=== PATIENT | male | born 1985 | race Caucasian/White ===

== ENCOUNTER 2017-09-18 09:02 | Inpatient (IN) | payer OTHER ==
[2017-09-18] VITALS (9 sets, daily range): BP systolic 109–143; BP diastolic 60–82; PULSE 74–99; RESP 16–18; TEMP 96.2–100.3; O2SAT 94–100
[2017-09-18] MEDS ORDERED: DIPHTH/TETANUS/ACEL PERTUSSIS (BOOSTER) 0.5 ML VIAL/PFS IM ONE ×2 (09:06→10:00)
[2017-09-18] MEDS ORDERED: ceFAZolin 2 GM PREMIX 50 ML ONE (09:06)
[2017-09-18] MEDS ORDERED: IOHEXOL 350 MG/ML 10 ML VIAL (for RAD DIAG) IVCONTRAST ONE (09:21)
[2017-09-18 09:24] LABS: AUTOMATED NEUTROPHIL # 4.9 TH/MM3 (1.8-7.7); BASOPHIL # 0.1 TH/MM3 (0-0.2); BASOPHIL % 0.7 % (0.0-2.0); EOSINOPHIL # 0.1 TH/MM3 (0-0.4); EOSINOPHIL % 1.5 % (0.0-4.0); HEMATOCRIT 45.9 % (39.0-51.0); LYMPH % 26.3 % (9.0-44.0); LYMPHOCYTE # 2.2 TH/MM3 (1.0-4.8); MEAN CELL VOLUME 94.8 FL (80.0-100.0); MEAN CORPUSCULAR HEMOGLOBIN 33.1 PG (27.0-34.0); MEAN CORPUSCULAR HGB CONC 34.9 % (32.0-36.0); MEAN PLATELET VOLUME 8.2 FL (7.0-11.0); NEUT % 59.5 % (16.0-70.0); PLATELET COUNT 272 TH/MM3 (150-450); RED BLOOD COUNT 4.84 MIL/MM3 (4.50-5.90); RED CELL DISTRIBUTION WIDTH 13.3 % (11.6-17.2); WHITE BLOOD COUNT 8.2 TH/MM3 (4.0-11.0)
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
[2017-09-18] MEDS ORDERED: MORPHINE SULFATE 8 MG/ML INJ ONE (09:31)
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
[2017-09-18 09:39] LABS: INTERNATIONAL NORMALIZED RATIO 1.1 RATIO
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
[2017-09-18] MEDS ORDERED: SODIUM CHLOR 0.9% 1000 ML INJ 1,000 ML IV ONE (10:00)
[2017-09-18] MEDS ORDERED: ceFAZolin 2 GM PREMIX 50 ML IV ONE (10:00)
[2017-09-18] MEDS ORDERED: ONDANSETRON HCL 4 MG/2 ML VIAL IV PUSH PRN (12:15)
[2017-09-18] MEDS ORDERED: SODIUM CHLORIDE 0.9% FLUSH 10 ML FLUSH IV FLUSH PRN (12:15)
[2017-09-18] MEDS ORDERED: MORPHINE SULFATE 4 MG/ML INJ IV PUSH PRN (12:15)
[2017-09-18] MEDS ORDERED: ENALAPRILAT 1.25 MG/ML VIAL IV PUSH PRN (12:15)
[2017-09-18] MEDS ORDERED: MORPHINE SULFATE 8 MG/ML INJ IV PUSH PRN (12:15)
[2017-09-18] MEDS ORDERED: PANTOPRAZOLE SODIUM 40 MG VIAL IVP SCH (13:00)
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
[2017-09-18] MEDS: ceFAZolin 2 GM PREMIX 50 ML IV SCH (22:02)
[2017-09-19 04:15] VITALS: BP 129/90; PULSE 93; RESP 16; TEMP 97.4; O2SAT 97
[2017-09-19] MEDS: ceFAZolin 2 GM PREMIX 50 ML IV SCH ×2 (05:31→12:17)
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
[2017-09-19] MEDS ORDERED: oxyCODONE/ACETAMINOPHEN 5 MG/325 MG TAB PO PRN (06:15)
[2017-09-19 08:00] VITALS: BP 129/78; PULSE 82; RESP 18; TEMP 97.2; O2SAT 99
[2017-09-19] MEDS: oxyCODONE/ACETAMINOPHEN 10 MG/325 MG TAB PO PRN ×3 (08:08→15:52)
[2017-09-19 08:18] LABS: AUTOMATED NEUTROPHIL # 6.1 TH/MM3 (1.8-7.7); BASOPHIL % 0.2 % (0.0-2.0); EOSINOPHIL # 0.1 TH/MM3 (0-0.4); EOSINOPHIL % 1.1 % (0.0-4.0); HEMOGLOBIN 13.4 GM/DL (13.0-17.0); LYMPH % 18.5 % (9.0-44.0); LYMPHOCYTE # 1.7 TH/MM3 (1.0-4.8); MEAN CELL VOLUME 94.2 FL (80.0-100.0); MEAN CORPUSCULAR HEMOGLOBIN 32.5 PG (27.0-34.0); MEAN CORPUSCULAR HGB CONC 34.4 % (32.0-36.0); MEAN PLATELET VOLUME 8.4 FL (7.0-11.0); MONO % 15.3 % (0.0-8.0); MONOCYTE # 1.4 TH/MM3 (0-0.9); NEUT % 64.9 % (16.0-70.0); PLATELET COUNT 200 TH/MM3 (150-450); RED BLOOD COUNT 4.14 MIL/MM3 (4.50-5.90); RED CELL DISTRIBUTION WIDTH 13.4 % (11.6-17.2); WHITE BLOOD COUNT 9.4 TH/MM3 (4.0-11.0)
[2017-09-19 08:40] LABS: ALBUMIN 3.2 GM/DL (3.4-5.0); ALT (GPT) 126 U/L (12-78); AST (GOT) 114 U/L (15-37); BICARBONATE 26.1 MEQ/L (21.0-32.0); BLOOD UREA NITROGEN 9 MG/DL (7-18); CALCIUM 8.2 MG/DL (8.5-10.1); CHLORIDE 106 MEQ/L (98-107); CREATININE 0.88 MG/DL (0.60-1.30); GLOMERULAR FILTRATION RATE 75 ML/MIN (>89); GLUCOSE,RANDOM 97 MG/DL (74-106); SODIUM (NA) 140 MEQ/L (136-145)
[2017-09-19 08:42] LABS: ALKALINE PHOSPHATASE 89 U/L (45-117); TOTAL BILIRUBIN ADULT 0.4 MG/DL (0.2-1.0); TOTAL PROTEIN 6.6 GM/DL (6.4-8.2)
[2017-09-19] MEDS ORDERED: DOCUSATE SODIUM 50 MG/SENNA 8.6 MG TAB PO SCH (09:00)
[2017-09-19 12:00] VITALS: BP 131/82; PULSE 85; RESP 18; TEMP 97.6; O2SAT 99
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
[2017-09-19 13:17] VITALS: RESP 18
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
== END 2017-09-19 16:09 | DRG 535 ==
LOC: NEPE 09:02 → EEVIPCON 10:21 → NEDA 10:21 → EDBD 10:21 → N06A 13:57
PROVIDERS: ADMIT Surgery; ATTEND Surgery
DX: S32.491 Other specified fracture of right acetabulum (principal); S32.391B Other fracture of right ilium, initial encounter for open fracture; R45.851 Suicidal ideations; Y35.003A Legal intervention involving unspecified firearm discharge, suspect injured, initial encounter; F43.25 Adjustment disorder with mixed disturbance of emotions and conduct; T42.4X2A Poisoning by benzodiazepines, intentional self-harm, initial encounter; F90.9 Attention-deficit hyperactivity disorder, unspecified type; Z91.5 Personal history of self-harm
CPT/HCPCS: 71045; 71260; 72170; 74177; 80048; 80053; 80307; 85025; 85610; 85730; 86850; 86900; 86901; 90715; 94150; C9113; J0690; J2270; Q9967